=== PATIENT | male | born 1960 | race Caucasian/White ===

== ENCOUNTER 2022-03-04 18:57 | Emergency (ER) | payer OTHER ==
[~2022-03-04] VITALS: Ht 182.9 cm; Wt 113.4 kg
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
--- NOTE | 2022-03-04 19:27 | NUR ---
covid swab colleceted sent to lab
[2022-03-04 19:30] LABS: CALCIUM, SERUM 8.5 mg/dL (8.5-10.1); CARBON DIOXIDE 25 mmol/L (21-32); CHLORIDE 106 mmol/L (98-107); CREATININE 0.9 mg/dL (0.6-1.3); GLUCOSE 104 mg/dL (74-106); POTASSIUM 3.9 mmol/L (3.5-5.1); SODIUM SERUM 142 mmol/L (136-145); UREA NITROGEN, BLOOD 10 mg/dL (7-18)
[2022-03-04] MEDS ORDERED: OLANZAPINE 10 MG VIAL IM ONE ×2 (19:30→19:33)
--- NOTE | 2022-03-04 19:30 | NUR ---
URINE SPECIMEN SENT TO LAB
--- NOTE | 2022-03-04 19:34 | NUR ---
SURENDRA MCINTOSH (SISTER): [phone]
[2022-03-04 19:35] LABS: ALANINE AMINOTRANSFERASE 49 U/L (12-78); ALBUMIN 3.5 g/dL (3.4-5.0); ALCOHOL, BLOOD < 3 mg/dL (0-0); ALKALINE PHOSPHATASE 67 U/L (46-116); ASPARTATE AMINOTRANSFERASE 32 U/L (15-37); BILIRUBIN,DIRECT 0.1 mg/dL (0.0-0.2); BILIRUBIN,TOTAL 0.3 mg/dL (0.2-1.0); TOTAL PROTEIN, SERUM 6.9 g/dL (6.4-8.2)
[2022-03-04 19:55] LABS: BASOPHILS % (AUTO) 0.8 % (0.0-2.0); EOSINOPHILS % (AUTO) 3.4 % (0.0-6.0); HEMATOCRIT 40 % (39-51); HEMOGLOBIN 13.6 g/dL (13.5-17.5); LYMPHOCYTES % (AUTO) 16.6 % (20.0-44.0); MEAN CORPUSCULAR HGB CONC 34 g/dl (31.0-36.0); MEAN CORPUSCULAR VOLUME 92 fL (80-96); MONOCYTES # (AUTO) 0.9 K/uL (0.1-1.30); MONOCYTES % (AUTO) 14.2 % (2.0-12.0); NEUTROPHILS # (AUTO) 3.9 K/uL (1.8-8.9); PLATELET COUNT (AUTO) 247 K/uL (150-450); RED BLOOD CELL COUNT(AUTO) 4.41 MIL/uL (4.5-6.0)
[2022-03-04 20:49] LABS: BILIRUBIN,URINE NEGATIVE (NEGATIVE); COLOR,URINE YELLOW (YELLOW); LEUKOCYTE ESTERASE ,URINE NEGATIVE (NEGATIVE); NITRITE, URINE NEGATIVE (NEGATIVE); PROTEIN,URINE NEGATIVE (NEGATIVE); UGLUCOSE NEGATIVE (NEGATIVE)
--- NOTE | 2022-03-05 02:17 | NUR ---
called jean-paul for psych eval called at [phone]
--- NOTE | 2022-03-05 03:23 | NUR ---
ARIN AT BEDSIDE FOR CRISIS EVAL.
[2022-03-05] MEDS ORDERED: HALOPERIDOL LACTATE INJ 5 MG/ML VIAL ONE (03:28)
[2022-03-05] MEDS ORDERED: HALOPERIDOL LACTATE INJ 5 MG/ML VIAL IM ONE (03:30)
--- NOTE | 2022-03-05 08:31 | NUR ---
Awake. Ambulatory able to go to [facility] to attend to am needs. Breakfast served-tolerated 100%
--- NOTE | 2022-03-05 10:09 | NUR ---
TATYANA followed up and called Samantha Tuttle FAX:[phone] PHONE:[phone] regarding refferal for psychiatric admission. Per Intake they accept this pt. and would liekt he nurse to nurse report to be called in to [phone]. TATYANA notified [facility].
--- NOTE | 2022-03-05 10:09 | NUR ---
PER KLEBER JOE PT IS ACCEPTED AT [facility] [phone]
--- NOTE | 2022-03-05 10:16 | NUR ---
ACCEPTING INFO: ADMITTED UNDER DR BROOKS, SET UP TRANSPORT TO [facility] I INTAKE DEPARTMENT. REPORT GIVEN TO BRANDY
--- NOTE | 2022-03-05 10:24 | NUR ---
[facility] CALLED FOR TRANSPORT WITH ETA OF 90 MINS PER ALON.
--- NOTE | 2022-03-05 11:33 | NUR ---
Transfer Information Accepted to: Marisol Concepcion Accepted by: Dr Solano Going to: Building 1 Sending CHRISSIE Buckner Report to: Luz Elena Transporting Agency: [facility] [address] EMT: Moy
[2022-03-05 11:41] VITALS: BP 133/82
== END 2022-03-05 11:42 ==
LOC: ER 19:31
DX: F23 Brief psychotic disorder (principal); Z91.14 Patient's other noncompliance with medication regimen; F31.9 Bipolar disorder, unspecified; Z20.822 Contact with and (suspected) exposure to COVID-19
CPT/HCPCS: 36415; 80048; 80076; 80143; 80307; 80320; 81003; 85025; 87426; 96372 ×2; 99285; C9803; J1630; J3490; G0480

== ENCOUNTER 2022-03-13 12:21 | Emergency (ER) | payer OTHER ==
[~2022-03-13] VITALS: Ht 182.9 cm; Wt 90.7 kg
--- NOTE | 2022-03-13 12:31 | NUR ---
[facility] states "he has TB". Thus, the [facility] wants a chest xray be done. On exam - the patient denies having TB or history of TB
--- NOTE | 2022-03-13 13:35 | NUR ---
Patient discharged to [facility] in stable condition. Written and verbal after care instructions given. Patient verbalizes understanding of instruction.
[2022-03-13 13:37] VITALS: BP 138/96
== END 2022-03-13 13:38 ==
LOC: ER 12:25
DX: Z02.89 Encounter for other administrative examinations (principal)
CPT/HCPCS: 71045-TC